=== PATIENT | male | born 1965 | race Caucasian/White ===

== ENCOUNTER 2017-09-17 05:23 | Emergency (ER) | payer BC ==
--- NOTE | 2017-09-17 06:16 | ED.PDOC ---
History of Present Illness - General Chief Complaint: Neuro Symptoms/Deficits Stated Complaint: Rt sided numbness, weakness, speech changes Time Seen by Provider: 09/17/17 05:39 Source: patient Exam Limitations: no limitations - History of Present Illness Initial Comments: the patient is a 52-year-old male presenting to the emergency room with his significant other secondary to 13 hours of a feeling of his right arm and leg being asleep. He is also reporting some weakness of the right leg and increasing weakness of the right arm in comparison. He feels poor coordination with his extremities on the right side as well. On actual exam of the right side, sensation is actually preserved. Strength of the right hand and forearm compared to the left is approximately 70% with strength of the right shoulder being approximately 50% in comparison to the left. Strength of the right leg is approximately 70% distally and approximately 80-90% proximally. The patient' s affect is also inappropriately flat and somewhat unconcerned. he has not had any difficulty with speech. No difficulty with swallowing. He denies any vision problems out of either eye. No difficulty with hearing. No syncope or near-syncope. No chest pain or palpitations. He has had one angioplasty in the past. No stents were left in place. He does not take any blood thinners. There is a question of whether he should be on a cholesterol medication. No history of any seizure activity. The patient reports that this started abruptly yesterday when he was in a hardware store at around 5 PM. He felt flushed and dizzy and diaphoretic and he felt like he had very significant weakness to his right side however this fairly quickly passed leaving him with significantly less significant symptoms on the right side which have been persistent since. The patient reports that he has fallen a couple of times through the night secondary to weakness of his right leg. He does not think that he has hurt anything. Timing/Duration: other - 13 hours Improving Factors: nothing Worsening Factors: nothing Associated Symptoms: malaise, weakness Allergies/Adverse Reactions: Allergies NO KNOWN ALLERGY Allergy (Unverified 05/30/14 08:22) Home Medications: Ambulatory Orders Lisinopril 10 mg PO DAILY 05/30/14 Metoprolol Tartrate [Lopressor] 25 mg PO DAILY 05/30/14 Ondansetron Tab [Zofran Tab] 4 mg PO Q6HRS PRN #15 tab 05/30/14 Review of Systems - Review of Systems Constitutional: States: no symptoms reported, malaise EENTM: States: no symptoms reported Respiratory: States: no symptoms reported Cardiology: States: no symptoms reported Gastrointestinal/Abdominal: States: no symptoms reported Genitourinary: States: no symptoms reported Musculoskeletal: States: see HPI Skin: States: no symptoms reported Neurological: States: see HPI Endocrine: States: no symptoms reported All other Systems: No Change from Baseline Past Medical History (General) - Patient Medical History Hx Cardiac Disorders: Yes Hx Congestive Heart Failure: Yes Hx Hypertension: Yes Hx Diabetes: No Hx Gastroesophageal Reflux: Yes Hx Cancer: No Hx Hepatitis C: No Surgical History: other - Vaccination History Hx Influenza Vaccination: Yes - Social History Hx Tobacco Use: Yes Hx Chewing Tobacco Use: Yes Hx Alcohol Use: Yes - Female History Patient : No Family Medical History - Family History Mother Family History: Unknown Physical Exam - Physical Exam General Appearance: Alert, Comfortable, No apparent distress Eye Exam: bilateral normal Ears, Nose, Throat: hearing grossly normal, normal ENT inspection, normal pharynx, other - tongue protrusion is symmetrical. Speech is clear. Neck: non-tender, full range of motion, supple Respiratory: chest non-tender, lungs clear, normal breath sounds, no respiratory distress, no accessory muscle use Cardiovascular/Chest: normal peripheral pulses, no edema, other - the patient does have fairly pronounced sinus arrhythmia with occasional PACs on telemetry monitoring and EKG. 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 See history of present illness for rest of neurology exam DTR: 2+: Biceps, left, Biceps, right, Patellar, left, Patellar, right Skin Exam: normal color Comments: Vital Signs - 24 hr 09/17/17 09/17/17 05:32 05:44 Temperature 96.7 F L Pulse Rate [ 72 72 left] Respiratory 16 Rate Blood Pressure 152/90 [left] O2 Sat by Pulse 95 Oximetry Progress - Progress Progress: 09/17/17 06:20 the patient's a 52-year-old male presenting to the emergency room with strokelike symptoms. Workup has been initiated. No blood thinners have as of yet been given due to the possibility of intracranial hemorrhage. Blood pressures are moderately elevated. The patient is certainly well past the established timeframe for generalized lytic therapy. If this does however end up seeming to be an ischemic stroke then he may benefit from transfer for further evaluation and possible directed revascularization therapy. 09/17/17 06:[address] fails to show any acute pathology. Head CT is done without contrast.lab work does show any other acute pathology. Telemetry does show any other acute arrhythmia. diagnosis at this time is a presumed small ischemic stroke. The patient has received a dose of aspirin. The patient has been clinically stable for 12 hours and is going to go by private vehicle per his request. he is capable of making this decision. This is less desirous/safe than by an ambulance however the risk have been explained to the patient and he has agreed to accept those risks. the patient will be going to the [facility] emergency room. Neurology has been contacted. They are to proceed directly to the [place] emergency room. The patient has well out of the range for generalized lytic therapy. He does need to remain nothing by mouth in transit. - Results/Orders Results/Orders: EKG is consistent with previous EKGs. He does have significant sinus arrhythmia. On telemetry he also has frequent PACs. I do believe the patient actually has a slightly shorter AR than what is measured on the EKG. He has an old Q wave in lead 3. No acute ST segment changes concerning for ischemia. 09/17/17 05:51 Telemetry .CONTINUOUS 09/17/17 06:00 EKG STAT Laboratory Results - last 24 hr 09/17/17 09/17/17 09/17/17 05:50 05:50 05:50 WBC 7.4 RBC 5.56 Hgb 17.0 Hct 49.1 MCV 88.3 MCH 30.5 MCHC 34.6 RDW 13.6 Plt Count 306 MPV 8.8 Absolute Neuts (auto) 4.10 Absolute Lymphs (auto) 2.60 Absolute Monos (auto) 0.50 Absolute Eos (auto) 0.10 Absolute Basos (auto) 0.00 Neutrophils % 55.8 Lymphocytes % 35.0 Monocytes % 7.4 Eosinophils % 1.3 Basophils % 0.5 PT 11.0 INR 0.950 PTT (SP) 31.2 D-Dimer, Quantitative < 230 Sodium 138 Potassium 3.7 Chloride 102 Carbon Dioxide 28 Anion Gap 11.7 L BUN 17 Creatinine 1.03 BUN/Creatinine Ratio 16.5 Random Glucose 111 H Serum Osmolality 277.9 Calcium 9.5 Magnesium 1.9 Total Bilirubin 1.1 H AST 17 ALT 34 Alkaline Phosphatase 97 Creatine Kinase 50 CK-MB (CK-2) 2.2 CK-MB (CK-2) % Not Reportable Troponin I < 0.02 B-Natriuretic Peptide 7.6 Serum Total Protein 7.4 Albumin 4.5 Globulin 2.9 Albumin/Globulin Ratio 1.6 Urine Color Urine Appearance Urine pH Ur Specific [place] Urine Protein Urine Glucose (UA) Urine Ketones Urine Blood Urine Nitrite Urine Bilirubin Urine Urobilinogen Ur Leukocyte Esterase Urine RBC Urine WBC Ur Epithelial Cells Urine Bacteria Urine Mucus Urine Opiates Screen Urine Barbiturates Ur Phencyclidine Scrn U Amphetamin/Meth Scrn U Benzodiazepines Scrn U Cocaine Metab Screen U Cannabinoids Screen 09/17/17 09/17/17 06:30 06:30 WBC RBC Hgb Hct MCV MCH MCHC RDW Plt Count MPV Absolute Neuts (auto) Absolute Lymphs (auto) Absolute Monos (auto) Absolute Eos (auto) Absolute Basos (auto) Neutrophils % Lymphocytes % Monocytes % Eosinophils % Basophils % PT INR PTT (SP) D-Dimer, Quantitative Sodium Potassium Chloride Carbon Dioxide Anion Gap BUN Creatinine BUN/Creatinine Ratio Random Glucose Serum Osmolality Calcium Magnesium Total Bilirubin AST ALT Alkaline Phosphatase Creatine Kinase CK-MB (CK-2) CK-MB (CK-2) % Troponin I B-Natriuretic Peptide Serum Total Protein Albumin Globulin Albumin/Globulin Ratio Urine Color Yellow Urine Appearance Clear Urine pH 5.0 Ur Specific [place] 1.025 Urine Protein Negative Urine Glucose (UA) Negative Urine Ketones Negative Urine Blood Negative Urine Nitrite Negative Urine Bilirubin Negative Urine Urobilinogen 0.2 Ur Leukocyte Esterase Negative Urine RBC 0 Urine WBC 0-1 Ur Epithelial Cells 0-1 Urine Bacteria Rare Urine Mucus Trace Urine Opiates Screen Negative Urine Barbiturates Negative Ur Phencyclidine Scrn Negative U Amphetamin/Meth Scrn Negative U Benzodiazepines Scrn Positive H U Cocaine Metab Screen Negative U Cannabinoids Screen Negative Departure - Departure Clinical Impression: Ischemic stroke Disposition: Transfer to Hospital Condition: Fair Departure Forms: ED Discharge - Pt. Copy, Patient Portal Self Enrollment Instructions: DI for Stroke-Ischemic Diet: other - nothing by mouth Referrals: Alvin Miller MD [Family Provider] - 1-2 Weeks Home Medications: Ambulatory Orders Lisinopril 10 mg PO DAILY 05/30/14 Metoprolol Tartrate [Lopressor] 25 mg PO DAILY 05/30/14 Ondansetron Tab [Zofran Tab] 4 mg PO Q6HRS PRN #15 tab 05/30/14 Additional Instructions: proceed directly to the [facility] in [place] emergency room
--- NOTE | 2017-09-17 06:32 | RAD ---
EXAM: AP CHEST RADIOGRAPH CLINICAL INDICATION: Compared to chest radiograph February 01, 2015. COMPARISON: Right-sided numbness. FINDINGS: Cardiac size and pulmonary vasculature are normal. Lungs are clear. No pleural effusions or pneumothorax. No hilar or mediastinal lymphadenopathy. No mediastinal widening. No extraluminal bowel gas under the hemidiaphragms. Bones are intact on this single view. IMPRESSION: Normal portable AP chest radiograph. Electronically signed by: Butch Kuhn MD 09/17/2017 6:31 AM CDT
--- NOTE | 2017-09-17 06:34 | CT ---
EXAM: NONCONTRAST BRAIN CT EXAMINATION. CLINICAL INDICATION: Right-sided numbness. Weakness. COMPARISON: None. TECHNIQUE: Using low dose helical CT technique, thin section axial images were performed through the brain without the administration of intravenous or subarachnoid contrast material. FINDINGS: Brain volume is normal. No diffuse brain swelling or brain herniation. No hydrocephalus. No subdural or epidural hematomas. No large subacute brain infarction. No parenchymal brain hemorrhage or evidence of intracranial mass lesion. The brainstem and cerebellum are normal. Cerebral white matter is grossly normal. Caudate heads, lentiform nuclei, thalami and internal capsules are normal. Bones of the skull and skull base are normal. The middle ears and mastoid air cells are clear. The partially visualized paranasal sinuses are clear. IMPRESSION: 1. Normal noncontrast brain CT examination. This exam was performed according to our departmental dose-optimization program, which includes automated exposure control, adjustment of the mA and/or kV according to patient size and/or use of iterative reconstruction technique. Electronically signed by: Butch Kuhn MD 09/17/2017 6:33 AM CDT
[2017-09-17] MEDS ORDERED: ASPIRIN TABLET 325 MG TAB PO ONE (06:47)
[2017-09-17 07:56] VITALS: BP 142/86; TEMP 97.7; O2SAT 98
== END 2017-09-17 07:48 | disposition short-term general hospital (02) ==
LOC: ER 05:23
DX: I63.9 Cerebral infarction, unspecified (principal); I49.1 Atrial premature depolarization; I11.0 Hypertensive heart disease with heart failure; I50.9 Heart failure, unspecified; K21.9 Gastro-esophageal reflux disease without esophagitis; Z87.891 Personal history of nicotine dependence

== ENCOUNTER 2018-08-17 15:25 | Emergency (ER) | payer BC ==
[2018-08-17] MEDS ORDERED: cloNIDine HCL 0.1 MG TAB PO ONE (16:23)
--- NOTE | 2018-08-17 17:03 | ED.PDOC ---
History of Present Illness - General Chief Complaint: Blood Pressure Problem Stated Complaint: HIGH BP Time Seen by Provider: 08/17/18 16:01 Source: patient Exam Limitations: no limitations - History of Present Illness Initial Comments: PT WENT TO CLINIC TODAY. BP NOTED TO BE 180/113. SENT TO ER. IN ER 175/105 THEN 160/106. GAVE CLONIDINE 0.2 MG PO X 1. NOW IS 160/92. PT HAD ALMEIDA AT CLINIC BUT IT RESOLVED IN ER WITH BP STARTING TO IMPROVE. PT STATES HIS BASELINE BP IS 140/90. SEES NEPHROLOGY FOR HIS BP MEDS: COREG AND NORVASC. 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 H/O STROKE 1 YR AGO. ONLY RESIDUAL IS RLE WEAKNESS. NO S/SX OF STROKE TODAY. NO CP. NO C/O OTHER THAN ALMEIDA, WHICH RESOLVED. Timing/Duration: 4-6 hours Severity: moderate Improving Factors: nothing Worsening Factors: nothing Associated Symptoms: headaches Allergies/Adverse Reactions: Allergies NO KNOWN ALLERGY Allergy (Unverified 05/30/14 08:22) Review of Systems - Review of Systems Constitutional: States: no symptoms reported. Denies: fever, malaise, weakness EENTM: Denies: blurred vision, ear pain Respiratory: States: no symptoms reported. Denies: short of breath Cardiology: Denies: chest pain, palpitations Gastrointestinal/Abdominal: States: no symptoms reported Genitourinary: States: no symptoms reported Musculoskeletal: States: no symptoms reported. Denies: neck pain Skin: States: no symptoms reported Neurological: States: pre-existing deficit. Denies: headache, paresthesia Endocrine: States: no symptoms reported Hematologic/Lymphatic: States: no symptoms reported All other Systems: Reviewed and Negative Past Medical History (General) - Patient Medical History Hx Stroke: Yes Hx Cardiac Disorders: Yes Hx Congestive Heart Failure: No Hx Hypertension: Yes Hx Diabetes: No Hx Gastroesophageal Reflux: Yes Hx Cancer: No Hx Hepatitis C: No - Vaccination History Hx Tetanus, Diphtheria Vaccination: Yes Hx Influenza Vaccination: Yes Hx Pneumococcal Vaccination: No Immunizations Up to Date: Yes - Social History Hx Tobacco Use: Yes Hx Chewing Tobacco Use: Yes Hx Alcohol Use: Yes - OCC Hx Substance Use: No Hx Substance Use Treatment: No Hx Depression: No - Female History Patient is a Female of Child Bearing Age (10 -59 yrs old): No Patient : No Family Medical History - Family History Mother Family History: Unknown Physical Exam - Physical Exam General Appearance: Alert, No apparent distress Eye Exam: bilateral normal Ears, Nose, Throat: hearing grossly normal, normal ENT inspection Neck: non-tender, full range of motion Respiratory: chest non-tender, lungs clear Cardiovascular/Chest: normal peripheral pulses, regular rate, rhythm Peripheral Pulses: radial,right: 2+, radial,left: 2+ Gastrointestinal/Abdominal: non tender, soft Back Exam: no CVA tenderness Extremity: normal range of motion, non-tender, normal inspection, no pedal edema, no calf tenderness 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 NO [place] OR STROKE SX, THUS NO FURTHER DIAGNOSTICS INDICATED; JUST ACUTE HTN MGMT. 08/17/18 17:12 BP DOWN FROM 180/113 TO 154/96. 08/17/18 17:14 PT DOES NOT KNOW THE DOSES ON HIS COREG AND NORVASC, THUS I AM NOT ABLE TO ALTER THEM. 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 08/17/18 17:49 BP NOW 147/91. SAFE FOR DC TO HOME WITH CLOSE F/U. - EKG/XRAY/CT EKG: Sinus, no ST T wave changes CT Ordered: No CT Interpretation Call Back: No Departure - Departure Clinical Impression: Hypertensive urgency Headache Qualifiers: Headache type: tension-type Headache chronicity pattern: acute headache Intractability: not intractable Qualified Code(s): G44.209 - Tension-type headache, unspecified, not intractable Disposition: Discharge to Home or Self Care Condition: Good Departure Forms: ED Discharge - Pt. Copy, Patient Portal Self Enrollment Instructions: DI for High Blood Pressure Diet: low salt diet Activity: increase activity as tolerated Referrals: Carie Duran NP [Primary Care Provider] - 1-2 Days Additional Instructions: Please see your regular DrKenrick tomorrow for blood pressure recheck. Please call your kidney/high blood pressure doctor tomorrow to schedule a follow-up to possibly adjust your blood pressure medications.
[2018-08-17 18:05] VITALS: BP 147/91; O2SAT 99
[2018-08-17 18:08] VITALS: TEMP 97.3
== END 2018-08-17 18:07 | disposition home or self-care (01) ==
LOC: ER 15:25
DX: I16.0 Hypertensive urgency (principal); G44.209 Tension-type headache, unspecified, not intractable; I51.9 Heart disease, unspecified; K21.9 Gastro-esophageal reflux disease without esophagitis; I69.341 Monoplegia of lower limb following cerebral infarction affecting right dominant side; Z87.891 Personal history of nicotine dependence

== ENCOUNTER 2020-04-24 23:05 | Emergency (ER) | payer BC ==
[2020-04-24] MEDS ORDERED: IPRATROPIUM/ALBUTEROL 3 ML VIAL NEB ONE (23:43)
[2020-04-24 23:46] VITALS: TEMP 98.2
--- NOTE | 2020-04-24 23:49 | ED.PDOC ---
History of Present Illness - General Chief Complaint: Respiratory Problem Stated Complaint: difficulty breathing, low sats Time Seen by Provider: 04/24/20 23:35 Source: patient Exam Limitations: no limitations - History of Present Illness Initial Comments: PT CAUGHT COVID 4 D AGO. TODAY IN [place], HE GOT MONOCLONAL ANTIBODIES. AFTERWARD, HE SPIKED A FEVER TO 104. SATS WERE AROUND 90% SO HE CAME TO [facility] ER. H/O HTN Severity: moderate Improving Factors: nothing Worsening Factors: nothing Associated Symptoms: cough, fever/chills Allergies/Adverse Reactions: Allergies NO KNOWN ALLERGY Allergy (Verified 04/24/20 23:25) Home Medications: Ambulatory Orders Albuterol Inhaler [Ventolin Hfa Inhaler] 2 puff INH Q6H PRN #1 inh 04/24/20 Review of Systems - Review of Systems Constitutional: Denies: chills, fever EENTM: Denies: ear pain, throat pain Respiratory: States: cough. Denies: short of breath Cardiology: Denies: chest pain, palpitations Gastrointestinal/Abdominal: Denies: abdominal pain, nausea Genitourinary: States: no symptoms reported Musculoskeletal: States: other - MYALGIAS Skin: States: no symptoms reported Neurological: States: no symptoms reported Endocrine: States: no symptoms reported Hematologic/Lymphatic: States: no symptoms reported All other Systems: Reviewed and Negative Past Medical History (General) - Patient Medical History Hx Stroke: Yes Hx Cardiac Disorders: Yes Hx Congestive Heart Failure: No Hx Hypertension: Yes Hx Diabetes: Yes - diet controlled Hx Gastroesophageal Reflux: Yes Hx Cancer: No Hx Hepatitis C: No Surgical History: other - Vaccination History Hx Tetanus, Diphtheria Vaccination: Yes Hx Influenza Vaccination: Yes Hx Pneumococcal Vaccination: No - Social History Hx Tobacco Use: Yes - dips Hx Chewing Tobacco Use: Yes Tins Per Day Chewed: 1 Hx Alcohol Use: Yes Hx Substance Use: No Hx Substance Use Treatment: No Hx Depression: No - Female History Patient : No Family Medical History - Family History Mother Family History: Unknown Physical Exam - Physical Exam General Appearance: Alert, No apparent distress Eye Exam: bilateral normal Ears, Nose, Throat: normal ENT inspection, normal pharynx Neck: full range of motion, normal inspection Respiratory: no respiratory distress, no accessory muscle use, decreased breath sounds - BL Cardiovascular/Chest: regular rate, rhythm, no murmur Peripheral Pulses: radial,right: 2+, radial,left: 2+ Gastrointestinal/Abdominal: non tender, soft Rectal Exam: deferred Extremity: normal range of motion, normal inspection 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 HAD REACTION TO MONOCLONAL ANTIBODY THERAPY TODAY IN [place] - FEVER, COUGH. DIMINISHED BREATH SOUNDS BL - DUONEBS. CXR - COVID PNE (BL MINIMAL DIFFUSE INTERSTITIAL DENSITIES). 93% ON RA UPON MY EXAM, NO HYPOXIA. VS WNL (AFEBRILE IN ER, NO TACHYCARDIA, NO HYPOTENSION). PT IS FEELING SX OF COVID AND/OR MONOCLONAL AB TX FROM TODAY. SAFE FOR DC TO HOME, MUST QUARANTINE 10 MORE DAYS. RX ALB INH PRN. TINCTURE OF TIME. PT STATES HE ALREADY HAS RX FOR Z-PACK, DEXAMETHASONE, AND ALB INHALER BUT JUST HASN'T BEEN TAKING THEM. I INSTRUCTED HIM TO TAKE THEM RX'D, THEY WILL HELP HIS SX. Departure - Departure Clinical Impression: COVID-19 virus infection, Cough, Decreased breath sounds Disposition: Discharge to Home or Self Care Condition: Good Departure Forms: ED Discharge - Pt. Copy, Patient Portal Self Enrollment Instructions: Coronavirus Disease 2019 (COVID-19) (DC) Diet: resume usual diet Activity: increase activity as tolerated Referrals: Carie Duran NP [Primary Care Provider] - 1-2 Weeks Prescriptions: Albuterol Inhaler [Ventolin Hfa Inhaler] 2 puff INH Q6H PRN #1 inh PRN Reason: WHEEZE Home Medications: Ambulatory Orders Albuterol Inhaler [Ventolin Hfa Inhaler] 2 puff INH Q6H PRN #1 inh 04/24/20 Additional Instructions: Please self-isolate for 10 more days. Do not go to work or leave the house except for a medical emergency. Despite your treatment today, you are still contagious and will get other people sick around you. Please take your Covid medications, as previously prescribed.
--- NOTE | 2020-04-25 00:05 | RAD ---
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 Prior films were compared. Noted is the presence of the mild cardiomegaly The thoracic aorta demonstrate minimal intimal calcification. Subpleural interstitial densities both lungs could correspond to atelectatic changes and/or the possibility of Covid 19 pneumonia could be of consideration. No significant pleural effusions/or focal areas of consolidation. The rest of the soft tissue and bony structures demonstrate to be unremarkable. IMPRESSION: MINIMAL DIFFUSE INTERSTITIAL DENSITIES SUBPLEURAL ASPECT BILATERAL MID/LOWER LUNG ZONE POSSIBILITY OF ATELECTASIS AND/OR INTERSTITIAL/VIRAL PNEUMONIA COULD BE OF CONSIDERATION. MILD CARDIOMEGALY. Electronically signed by: Kelton Alonzo MD 04/25/2020 12:03 AM INTELLIGENCE CONSULTANT
[2020-04-25 00:14] VITALS: O2SAT 95
[2020-04-25 01:06] VITALS: BP 128/65
== END 2020-04-25 01:06 | disposition home or self-care (01) ==
LOC: ER 23:05
DX: U07.1 COVID-19 (principal); I51.9 Heart disease, unspecified; I10 Essential (primary) hypertension; E11.9 Type 2 diabetes mellitus without complications; Z87.891 Personal history of nicotine dependence; Z86.73 Personal history of transient ischemic attack (TIA), and cerebral infarction without residual deficits
CPT/HCPCS: 71045; 94640; J7620